=== PATIENT | male | born 1930 | race Caucasian/White ===

== ENCOUNTER 2017-02-27 07:10 | Emergency (ER) | payer MEDICARE ==
[~2017-02-27] VITALS: Ht 182.9 cm; Wt 89.0 kg
[2017-02-27 08:52] LABS: BLOOD UREA NITROGEN 26 mg/dL (7-18)
[2017-02-27] MEDS ORDERED: LOSA25TA5 PO (09:17)
[2017-02-27 09:18] VITALS: BP 150/67
== END 2017-02-27 09:20 | disposition home or self-care (01) ==
LOC: ED 08:02
DX: J20.8 Acute bronchitis due to other specified organisms (principal); J06.9 Acute upper respiratory infection, unspecified; K43.9 Ventral hernia without obstruction or gangrene; I10 Essential (primary) hypertension
CPT/HCPCS: 36415; 71020; 80048; 82040; 83605; 85025; 99285

== ENCOUNTER 2021-03-11 18:59 | Emergency (ER) | payer MEDICARE ==
[~2021-03-11] VITALS: Ht 182.9 cm; Wt 85.9 kg
[~2021-03-11 18:59] MED LIST: LOSA25TA25 PO
[2021-03-11 19:24] VITALS: BP 177/81
[2021-03-11 22:47] LABS: BASOPHILS % (AUTO) 0 % (0-1); EOSINOPHILS % (AUTO) 2 % (1-7); LYMPHOCYTES % (AUTO) 20 % (22-44); MEAN CORPUSCULAR HEMOGLOBIN 31.3 pg (27.5-34.5); MEAN CORPUSCULAR HGB CONC 33.6 g/dL (33.2-36.2); MEAN PLATELET VOLUME 9.6 fL (7.4-10.4); MONOCYTES % (AUTO) 14 % (2-9); NEUTROPHILS % (AUTO) 64 % (42-75); PLATELET COUNT 139 x10^3/uL (130-400); RED BLOOD COUNT 4.88 x10^6/uL (4.38-5.82); RED CELL DISTRIBUTION WIDTH 14.3 % (9.4-14.8)
[2021-03-11 22:50] LABS: ALANINE AMINOTRANSFERASE 27 U/L (12-78); ALBUMIN 3.2 g/dL (3.4-5.0); ANION GAP 4 mmol/L (5-15); CALCIUM 8.9 mg/dL (8.5-10.1); CHLORIDE 109 mmol/L (98-107)
[2021-03-11 22:55] LABS: ALKALINE PHOSPHATASE 92 U/L (45-117); BILIRUBIN,TOTAL 0.4 mg/dL (0.2-1.0); TOTAL PROTEIN 6.8 g/dL (6.4-8.2); TROPONIN I < 0.015 ng/mL (0.000-0.045)
[2021-03-11 23:40] LABS: MICROSCOPIC NOT IND
[2021-03-12] MEDS ORDERED: LIDODERM 5% PATCH TD ONE ×2 (02:00→02:20)
--- NOTE | 2021-03-12 02:36 | NUR ---
Patient/Caregiver given discharge instructions and they have confirmed that they understand the instructions. Patient ambulatory with steady gait. NAD, all questions answered appropriately, denies additional needs at this time. No personal belongings left in room after discharge.
== END 2021-03-12 02:37 | disposition home or self-care (01) ==
LOC: ED 23:59
DX: S39.012A Strain of muscle, fascia and tendon of lower back, initial encounter (principal); I10 Essential (primary) hypertension; X58.XXXA Exposure to other specified factors, initial encounter; Y93.89 Activity, other specified; Y92.89 Other specified places as the place of occurrence of the external cause; Y99.8 Other external cause status
CPT/HCPCS: 36415; 71045; 72110; 74176; 80053; 81003; 84484; 85025; 99285